=== PATIENT | male | born 1970 | race Caucasian/White ===

== ENCOUNTER 2018-01-16 13:07 | Emergency (ER) | payer OTHER ==
[~2018-01-16] VITALS: Ht 182.9 cm; Wt 102.1 kg
[2018-01-16] MEDS ORDERED: METFORMIN HCL500 MG PO (15:38)
[2018-01-16] MEDS ORDERED: TRAMADOL 50 MG50 MG PO (15:38)
[2018-01-16] MEDS ORDERED: ROBAXIN 750 MG750 M1 PO (15:38)
[2018-01-16 16:07] VITALS: BP 128/75
== END 2018-01-16 16:08 | disposition home or self-care (01) ==
LOC: M.ERS 13:07
DX: M54.42 Lumbago with sciatica, left side (principal); E11.9 Type 2 diabetes mellitus without complications; F17.200 Nicotine dependence, unspecified, uncomplicated

== ENCOUNTER 2020-11-12 11:57 | Emergency (ER) | payer OTHER ==
[~2020-11-12] VITALS: Ht 182.9 cm; Wt 113.4 kg
[~2020-11-12 11:57] MED LIST: METFORMIN HCL500 MG PO; ROBAXIN 750 MG750 M1 PO; TRAMADOL 50 MG50 MG PO
[2020-11-12] MEDS ORDERED: DOXYCYCLINE 10100 M2 PO (13:30)
[2020-11-12] MEDS ORDERED: CEFIXIME400 MG PO (13:30)
[2020-11-12 14:03] LABS: URINE BILIRUBIN NEGATIVE (Negative); URINE BLOOD TRACE (Negative); URINE CLARITY CLEAR; URINE COLOR YELLOW; URINE GLUCOSE-RANDOM 3+ (Negative); URINE KETONES TRACE (Negative); URINE LEUKOCYTES-REFLEX 1+ (Negative); URINE NITRITE-REFLEX NEGATIVE (Negative); URINE PROTEIN NEGATIVE (Negative); URINE SPECIFIC GRAVITY >= 1.030 (1.005-1.030); URINE UROBILINOGEN 0.2 E.U./dl (0.2-1.0)
[2020-11-12 14:10] LABS: BACTERIA-REFLEX 1-9 Few /HPF (None Seen); CASTS None Seen /LPF (None Seen); CRYSTALS None Seen /LPF (None Seen); MUCUS None Seen strn/LPF (None Seen); SQUAMOUS 0-3 Few /LPF (0-3); URINE RBC 3-10 Few /HPF (0-2)
[2020-11-12 14:14] VITALS: BP 123/87
== END 2020-11-12 14:15 | disposition home or self-care (01) ==
LOC: M.ERS 11:57
PROVIDERS: Family Medicine
DX: N34.2 Other urethritis (principal); E11.9 Type 2 diabetes mellitus without complications